=== PATIENT | male | born 1960 | race Asian ===

== ENCOUNTER 2017-04-08 12:28 | Emergency (ER) | payer OTHER ==
[2017-04-08 12:39] VITALS: BP 122/80; PULSE 82; TEMP 98.4; BMI 22.1
--- NOTE | 2017-04-08 13:09 | PDOC ---
History of Present Illness - General Chief Complaint: Allergic Reaction Stated Complaint: ALLERGIC REACTION Time Seen by Provider: 04/08/17 13:01 History Source: Patient - History of Present Illness Timing/Duration: reports: yesterday Severity: Yes: mild Location: reports: extremities Past History - Past Medical History Allergies/Adverse Reactions: Allergies Allergy/AdvReac Type Severity Reaction Status Date / Time No Known Allergies Allergy Verified 04/08/17 12:33 Home Medications: Ambulatory Orders Multivitamin/Iron/Folic Acid [Centrum Complete Multivit Tab] 1 each PO DAILY Amlodipine Besylate [Norvasc -] 5 mg PO DAILY #0 tablet 04/05/14 Aspirin Coated [Ecotrin -] 81 mg PO DAILY #0 tablet.ec 04/05/14 Atorvastatin Ca [Lipitor] 10 mg PO HS #0 tablet 04/05/14 Meclizine HCl [Antivert -] 12.5 mg PO BID #120 tablet 04/05/14 Metoprolol Succinate [Toprol XL -] 25 mg PO DAILY #30 tablet 04/05/14 Diphenhydramine HCl [Benadryl -] 25 mg PO Q6H #30 capsule 04/08/17 Loratadine [Claritin] 10 mg PO DAILY #15 tablet 04/08/17 HTN: Yes Hypercholesterolemia: Yes Suicide Attempt (Hx): No Other medical history: BPH - Psycho/Social/Smoking Cessation Hx Anxiety: No Suicidal Ideation: No Smoking Status: Yes Smoking History: Current some day smoker Have you smoked in the past 12 months: Yes Number of Cigarettes Smoked Daily: 2 Information on smoking cessation initiated: Yes 'Breaking Loose' booklet given: 04/08/17 Hx Alcohol Use: No Drug/Substance Use Hx: No Substance Use Type: None Review of Systems - Review of Systems Constitutional: No: Chills, Fever Integumentary: Yes: Pruritus, Rash *Physical Exam - Vital Signs Last Vital Signs Temp Pulse Resp BP Pulse Ox 98.4 F 82 18 122/80 100 04/08/17 12:34 04/08/17 12:34 04/08/17 12:34 04/08/17 12:34 04/08/17 12:34 - Physical Exam General Appearance: Yes: Appropriately Dressed. No: Apparent Distress HEENT: positive: Normal Voice Respiratory/Chest: negative: Respiratory Distress Integumentary: positive: Dry, Warm, Hives (to upper exts b/l and back) Neurologic: positive: Fully Oriented, Alert, Normal Mood/Affect Medical Decision Making - Medical Decision Making 04/08/17 13:35 57-year-old male, history of hypertension, hyperlipidemia, works as a mechanical maintenance technician and presents with pruritic rash mostly to bilateral upper extremities that started yesterday while fixing cars as per per patient. Unknown source of sxs and denies any drug or food allergies. Use Benadryl once last night which helped minimally. No respiratory symptoms. Patient well-appearing and stable with multiple hives to bilateral upper extremity. Pt discharged w/ claritin. Reason to return d/w pt 04/08/17 15:00 *DC/Admit/Observation/Transfer Diagnosis at time of Disposition: Hives - Discharge Dispostion Disposition: HOME Condition at time of disposition: Good - Prescriptions Prescriptions: Diphenhydramine HCl [Benadryl -] 25 mg PO Q6H #30 capsule Loratadine [Claritin] 10 mg PO DAILY #15 tablet - Patient Instructions Printed Discharge Instructions: Hives Additional Instructions: Take medications as directed and return to ED for worsening of symptoms
== END 2017-04-08 13:18 | disposition home or self-care (01) ==
LOC: JERFT 12:28 → JER 12:28 → JERFT 13:18
DX: L50.0 Allergic urticaria (principal); T78.40XA Allergy, unspecified, initial encounter; X58.XXXA Exposure to other specified factors, initial encounter; Y93.89 Activity, other specified; Y92.89 Other specified places as the place of occurrence of the external cause; Y99.0 Civilian activity done for income or pay; I10 Essential (primary) hypertension; E78.00 Pure hypercholesterolemia, unspecified; N40.0 Benign prostatic hyperplasia without lower urinary tract symptoms
CPT/HCPCS: 99281-25

== ENCOUNTER 2017-09-13 07:56 | Emergency (ER) | payer OTHER ==
[2017-09-13 08:02] VITALS: BMI 22.1
--- NOTE | 2017-09-13 09:05 | PDOC ---
Attending Attestation - Resident Resident Name: CarolynKemar - ED Attending Attestation I have performed the following: I have examined & evaluated the patient, The case was reviewed & discussed with the resident, I agree w/resident's findings & plan, Exceptions are as noted - HPI HPI: 09/13/17 10:44 57yo male with CP this AM and palpitations/sob. No PE risk factors. No pain at this time. Hx of stress test in the past that was negative. - Physicial Exam PE: 09/13/17 10:45 Gen: aaox3, nad Heart: +s1s2 reg Lungs: cta b/l, no chest wall ttp abd: soft, nt/nd +bs Ext: no c/c/e Neuro: no focal neuro deficits, ambulatory in the ED. skin: no rashes. - Medical Decision Making 09/13/17 09:05 I, Dr. Melody Keen, DO, attest that this document has been prepared under my direction and personally reviewed by me in its entirety. I further attest, that it accurately reflects all work, treatment, procedures and medical decision -making performed by me. 09/13/17 10:00 a/p: 57yo male with L sided cp that radiates to his back - currently resolved -atypical cp vs hypertensive urgency vs palpitations vs arrhythmia -labs -trop x 2 -cxr -ekg -reassess -PMD Dr. Yesi Lira, cards - seen by Floresita in the past 09/13/17 10:03 pt resting comfortably, no pain at this time. Heart Score/ECG Review - History History: Slightly suspicious - Electrocardiogram EKG: Normal - Age Age: 45-65 - Risk Factors Risk Factors Heart Score: Yes Hx Hypertension Based on the list above the patient has:: 1-2 risk factors - Troponin Troponin: </= normal limit - Score Heart Score - Total: 2 - ECG Intrepretation Comment:: 09/13/17 10:22 sinus at 74, nl axis, nl interval, no acute st/t wave findings
[2017-09-13 09:10] LABS: BASOPHIL 0.3 % (0-2.0); EOSINOPHIL 1.1 % (0-4.5); MCH 31.1 pg (25.7-33.7); MEAN CELL VOLUME 91.5 fl (80-96); MEAN PLT VOLUME 8.8 fl (7.5-11.1); PLATELET COUNT 200 K/MM3 (134-434); RDW 13.2 % (11.9-15.9); WHITE BLOOD COUNT 6.4 K/mm3 (4.0-10.0)
--- NOTE | 2017-09-13 09:31 | PDOC ---
History of Present Illness - General Chief Complaint: Chest Pain Stated Complaint: CHEST DISCOMFORT Time Seen by Provider: 09/13/17 08:18 - History of Present Illness Initial Comments: 09/13/17 09:20 The patient is a 57 yo m w/ PMH HTN comes into the ED c/o a 1 day hx left sided chest pain. Patient went to work this morning and began to experience a sharp, 7 /10 left sided chest pain which radiated to his back. Patient states that the pain is worse on lying still and better when walking around. The pain was associated with SOB. The patient layed down in his car and the pain improved. When he went to stand up, the patient experienced dizziness and palpitations which resolved spontaneously. Patient denies PARMAR, chest tightness, abdominal pain , LOC. Past History - Past Medical History Allergies/Adverse Reactions: Allergies Allergy/AdvReac Type Severity Reaction Status Date / Time No Known Allergies Allergy Verified 09/13/17 08:02 Home Medications: Ambulatory Orders Atorvastatin Ca [Lipitor] 10 mg PO HS #0 tablet 04/05/14 COPD: No HTN: Yes Hypercholesterolemia: Yes - Surgical History Abdominal Surgery: Yes (HERNIA) - Family Disease History Family Disease History: Diabetes: Mother, Heart Disease: Mother - Suicide/Smoking/Psychosocial Hx Smoking Status: Yes Smoking History: Current some day smoker Have you smoked in the past 12 months: No Number of Cigarettes Smoked Daily: 1 Information on smoking cessation initiated: No 'Breaking Loose' booklet given: 04/08/17 Hx Alcohol Use: No Drug/Substance Use Hx: No Substance Use Type: None Review of Systems - Review of Systems Able to Perform ROS?: Yes Is the patient limited Turkmen proficient: No Constitutional: No: Chills, Fever, Malaise, Weakness HEENTM: No: Recent change in vision, Double Vision Respiratory: Yes: Shortness of Breath. No: Cough Cardiac (ROS): Yes: Chest Pain, Palpitations. No: Edema, Syncope, Chest Tightness ABD/GI: No: Symptoms Reported : No: Burning, Dysuria, Frequency Musculoskeletal: No: Muscle Pain, Muscle Weakness Neurological: No: Headache, Numbness, Tingling Psychiatric: Yes: Anxiety *Physical Exam - Vital Signs Last Vital Signs Temp Pulse Resp BP Pulse Ox 97.3 F L 72 18 137/83 100 09/13/17 07:59 09/13/17 07:59 09/13/17 07:59 09/13/17 07:59 09/13/17 07:59 - Physical Exam General Appearance: Yes: Appropriately Dressed. No: Apparent Distress HEENT: positive: Other (right sided conjunctival injection) Neck: positive: Trachea midline Respiratory/Chest: positive: Lungs Clear, Normal Breath Sounds. negative: Chest Tender, Respiratory Distress, Accessory Muscle Use Cardiovascular: positive: Regular Rhythm, Regular Rate, S1, S2. negative: Edema , JVD, Murmur, Gallop/S3, Gallop/S4 Gastrointestinal/Abdominal: positive: Normal Bowel Sounds, Flat, Soft. negative : Tender Musculoskeletal: positive: Normal Inspection Extremity: positive: Normal Inspection Integumentary: positive: Dry, Warm Neurologic: positive: Fully Oriented, Alert ED Treatment Course - LABORATORY CBC & Chemistry Diagram: 09/13/17 09:00 09/13/17 09:00 - ADDITIONAL ORDERS Additional order review: 09/13/17 09:00 RBC 4.84 MCV 91.5 MCHC 34.0 RDW 13.2 MPV 8.8 Neutrophils % 74.0 Lymphocytes % 17.6 D Monocytes % 7.0 Eosinophils % 1.1 Basophils % 0.3 Medical Decision Making - Medical Decision Making 09/13/17 09:35 The patient is a 57 yo m w/ PMH HTN comes in c/o left sided sharp chest pain associated with SOB, Palpitations and dizziness. EKG WNL. Patient hemodynamically stable at this time. The HPI and quality of the patient's chest pain apprears to be muscular in origin, though ACS should be ruled out. Sharp CP and SOB are concerning for PE, though the patient has no risk factors, is not tachycardic and is not hypoxic. Well's score for PE is 0. -CBC, CMP -troponins -will await lab results and reassess. 09/13/17 14:43 -CBC, CMP, troponin WNL -on reassessment, patient states he feels much better now. States pain is now reproducible on palpation -will await repeat troponin and dc if negative. 09/13/17 15:31 -Rpt troponin negative, will DC home with instructions to follow up w/ his PCP. *DC/Admit/Observation/Transfer Diagnosis at time of Disposition: Chest pain Qualifiers: Chest pain type: unspecified Qualified Code(s): R07.9 - Chest pain, unspecified ; R07.9 - Chest pain, unspecified - Discharge Dispostion Disposition: HOME Condition at time of disposition: Improved Admit: No - Referrals Referrals: Yesi Dave MD [Primary Care Provider] - Luis Canas MD [Staff Physician] - - Patient Instructions Printed Discharge Instructions: DI for Atypical Chest Pain, DI for Chest Pain Additional Instructions: You should follow up with your primary care physician within 1-2 days of going home. You should also follow up with a laborer cement gun placing, Dr. Camejo, within 1- 2 days of going home. If you begin to experience worsening chest pain, shortness of breath, fevers, chills, or if any of your symptoms get worse, please call your doctor or return to the Emergency department.
[2017-09-13 09:40] LABS: ALBUMIN 3.8 g/dl (3.4-5.0); ANION GAP 7 (8-16); BILIRUBIN,TOTAL 0.6 mg/dL (0.2-1.0); CO2 27 mmol/L (21-32); CREATININE 0.9 mg/dL (0.7-1.3); GLUCOSE,RANDOM 100 mg/dL (74-106); SGOT/AST 25 U/L (15-37); SGPT/ALT 33 U/L (12-78)
[2017-09-13 09:41] LABS: ALK PHOS 68 U/L (45-117); TOT PROT 7.2 g/dl (6.4-8.2)
[2017-09-13 10:00] LABS: THYROID STIMULATING HORMONE 2.83 uIU/ml (0.358-3.74)
[2017-09-13] MEDS ORDERED: ACETAMINOPHEN INJECTION 100 ML IVPB ONE (10:20)
[2017-09-13 15:51] VITALS: BP 139/82; PULSE 85; TEMP 98.1
--- NOTE | 2017-09-21 11:57 | EKG ---
Test Reason : Blood Pressure : / mmHG Vent. Rate : 074 BPM Atrial Rate : 074 BPM P-R Int : 156 ms QRS Dur : 076 ms QT Int : 384 ms P-R-T Axes : 071 033 020 degrees QTc Int : 426 ms NORMAL SINUS RHYTHM POSSIBLE LEFT ATRIAL ENLARGEMENT WHEN COMPARED WITH ECG OF 04-APR-2014 13:05, NO SIGNIFICANT CHANGE WAS FOUND Confirmed by TRENT CABRERA MD ([id number]) on 09/21/2017 11:57:17 AM Referred By: Confirmed By:TRENT CABRERA MD
== END 2017-09-13 15:50 | disposition home or self-care (01) ==
LOC: JER 07:56
DX: R07.9 Chest pain, unspecified (principal); I10 Essential (primary) hypertension; E78.00 Pure hypercholesterolemia, unspecified; F17.210 Nicotine dependence, cigarettes, uncomplicated
CPT/HCPCS: 36415; 71020-TC; 80053; 84443; 84484; 85025; 93005; 93010; 99283-25

== ENCOUNTER 2018-02-08 07:49 | Emergency (ER) | payer OTHER ==
[2018-02-08 08:16] VITALS: BP 146/84; PULSE 87; TEMP 98; BMI 22.1
--- NOTE | 2018-02-08 08:32 | PDOC ---
Suture Removal/Wound Check HPI - History of Present Illness Chief Complaint: Suture/Staple Removal(Here) Stated Complaint: SUTURE/STAPLE REMOVAL History Source: Yes: Patient Exam Limitations: Yes: No Limitations - Previous ED Treatment Type of procedure performed on last visit: Yes: Laceration Repair Tetanus Immunization: Yes: Up to Date - Onset of Previous Treatment Comment:: 02/08/18 08:30 2 weeks ago, lac from edge of sharp metal- no complaints Past History - Travel Traveled outside of the country in the last 30 days: No Close contact w/someone who was outside of country & ill: No - Past Medical History Allergies/Adverse Reactions: Allergies Allergy/AdvReac Type Severity Reaction Status Date / Time No Known Allergies Allergy Verified 02/08/18 07:57 Home Medications: Ambulatory Orders Atorvastatin Ca [Lipitor] 10 mg PO HS #0 tablet 04/05/14 Amlodipine Besylate [Norvasc -] 10 mg PO DAILY 01/25/18 COPD: No HTN: Yes Hypercholesterolemia: Yes - Surgical History Abdominal Surgery: Yes (HERNIA) - Family Disease History Family Disease History: Diabetes: Mother, Heart Disease: Mother - Suicide/Smoking/Psychosocial Hx Smoking Status: Yes Smoking History: Never smoked Have you smoked in the past 12 months: No Number of Cigarettes Smoked Daily: 3 Information on smoking cessation initiated: No 'Breaking Loose' booklet given: 04/08/17 Hx Alcohol Use: No Drug/Substance Use Hx: No Substance Use Type: Alcohol Suture Removal/Wound Check PE - Physical Exam Laceration/Wound Check Symptoms: reports: None Current Severity Level: None *Review of Systems - Review of Systems Able to Perform ROS?: Yes Constitutional: Yes: See HPI. No: Symptoms Reported HEENTM: Yes: See HPI. No: Symptoms Reported Respiratory: No: Symptoms reported Integumentary: Yes: Symptoms Reported, See HPI, Other (well healed laceration to index finger right hand/- 5 uintact sutures , FROM of finger ) All Other Systems: Reviewed and Negative *DC/Admit/Observation/Transfer Diagnosis at time of Disposition: Visit for suture removal - Discharge Dispostion Disposition: HOME Condition at time of disposition: Stable Admit: No - Referrals Referrals: Yesi Dave MD [Primary Care Provider] - - Patient Instructions Printed Discharge Instructions: DI for Suture Removal - Post Discharge Activity Forms/Work/School Notes: Back to Work
== END 2018-02-08 08:47 | disposition home or self-care (01) ==
LOC: JER 07:49
DX: Z48.02 Encounter for removal of sutures (principal); I10 Essential (primary) hypertension; E78.00 Pure hypercholesterolemia, unspecified
CPT/HCPCS: 99281-25

== ENCOUNTER 2022-01-26 22:19 | Emergency (ER) | payer OTHER ==
[2022-01-26 22:38] VITALS: BMI 21.0
[2022-01-26] MEDS ORDERED: ASPIRIN 81 MG CHEWABLE TABLETS PO ONE (23:13)
[2022-01-26] MEDS ORDERED: HEPARIN NA (PORCINE) 5,000 UNITS/ML 1ML VIAL IVPUSH ONE (23:13)
[2022-01-26] MEDS ORDERED: ASPIRIN 81 MG CHEWABLE TABLETS ONE (23:14)
[2022-01-26] MEDS ORDERED: ATORVASTATIN CA 80 MG TABLET (FP) ONE (23:15)
[2022-01-26] MEDS ORDERED: CLOPIDOGREL BISULFATE 300 MG TABLET ONE (23:15)
[2022-01-26] MEDS ORDERED: HEPARIN NA (PORCINE) 5,000 UNITS/ML 1ML VIAL ONE (23:15)
[2022-01-26 23:19] LABS: BASO % 0.2 % (0-2.0); EOS % 0.1 % (0-4.5); HEMOGLOBIN 13.4 GM/dL (11.7-16.9); LYMPH % 3.5 % (8-40); MCH 31.4 pg (25.7-33.7); MCHC 33.6 g/dl (32.0-35.9); MEAN CELL VOLUME 93.3 fl (80-96); MEAN PLT VOLUME 9.6 fl (7.5-11.1); MONO % 7.6 % (3.8-10.2); NEUT % 88.6 % (42.8-82.8); PLATELET COUNT 184 10^3/uL (134-434); RBC 4.29 M/mm3 (4.00-5.60); RDW 13.8 % (11.9-15.9); WHITE BLOOD COUNT 17.2 K/mm3 (4.0-10.0)
[2022-01-26] MEDS ORDERED: SODIUM CHLORIDE 0.9% 500 ML INFUS.BAG IV ONE (23:19)
[2022-01-26] MEDS ORDERED: ATORVASTATIN CA 80 MG TABLET (FP) PO ONE (23:19)
[2022-01-26] MEDS ORDERED: morphine CARPU-JECT 2 MG/1 ML DISP.SYRIN IVPUSH ONE (23:20)
[2022-01-26] MEDS ORDERED: ONDANSETRON 4 MG/2 ML VIAL IVPUSH ONE (23:20)
[2022-01-26] MEDS ORDERED: CLOPIDOGREL BISULFATE 300 MG TABLET PO ONE (23:20)
[2022-01-26] MEDS ORDERED: ONDANSETRON 4 MG/2 ML VIAL ONE (23:22)
[2022-01-26 23:27] LABS: INR 1.32 (0.83-1.09); PROTHROMBIN TIME (PATIENT) 15.2 SEC (9.7-13.0)
[2022-01-26] MEDS ORDERED: HEPARIN NA (PORCINE) 5,000 UNITS/ML 1ML VIAL SQ ONE (23:27)
[2022-01-26 23:29] LABS: ACTIVATED PTT 33.1 SECONDS (25.2-36.5)
[2022-01-26] MEDS ORDERED: TICAGRELOR 90 MG TABLET PO ONE (23:33)
[2022-01-26 23:41] LABS: CALCIUM 8.4 mg/dL (8.5-10.1)
[2022-01-26 23:42] LABS: BLOOD UREA NITROGEN 26.3 mg/dL (7-18)
[2022-01-26 23:44] LABS: CREATININE 1.5 mg/dL (0.55-1.3)
[2022-01-26 23:46] LABS: BILIRUBIN,TOTAL 1.1 mg/dL (0.2-1)
[2022-01-26 23:57] LABS: ALBUMIN 2.7 g/dl (3.4-5.0)
[2022-01-27 01:43] VITALS: BP 105/60; PULSE 120; TEMP 98.8
[2022-01-27] MEDS ORDERED: TICAGRELOR 90 MG TABLET PO ONE (23:30)
== END 2022-01-27 01:00 | disposition short-term general hospital (02) ==
LOC: JER 22:19
PROC: 3E023GC Introduction of Other Therapeutic Substance into Muscle, Percutaneous Approach (ICD-10-PCS; principal; 2022-01-26)
PROC: 3E033GC Introduction of Other Therapeutic Substance into Peripheral Vein, Percutaneous Approach (ICD-10-PCS; principal; 2022-01-26)
DX: I21.3 ST elevation (STEMI) myocardial infarction of unspecified site (principal)
CPT/HCPCS: 36415; 71045-TC-FY; 80053; 84443; 84484; 85025; 85379; 85610; 85730; 93005; 93010; 93308; 99291; J1644